=== PATIENT | female | born 1985 ===

== ENCOUNTER 2017-08-29 13:25 | Emergency (ER) | payer OTHER ==
[2017-08-29 13:53] VITALS: BMI 24.7
[2017-08-29 13:58] VITALS: RESP 18
--- NOTE | 2017-08-29 16:31 | C.PDOC ---
History Of Present Illness 31 yo female c/o lower back pain for two days. Pt notes she reached for something and felt a "shooting" pain in her back. Notes that pain improved but today she bent down and the pain returned. DEnies direct trauma. No change in sensation, dysuria, urinary frequency, vaginal bleeding, or h/o back pain. Pt has not taken anything for pain. Time Seen by Provider: 08/29/17 15:43 Chief Complaint (Nursing): Back Pain History Per: Patient History/Exam Limitations: no limitations Onset/Duration Of Symptoms: Days Current Symptoms Are (Timing): Still Present Quality Of Discomfort: "Pain" Past Medical History Vital Signs: Last Vital Signs Temp 98.3 F 08/29/17 16:37 Pulse 73 08/29/17 16:37 Resp 18 08/29/17 16:37 BP 99/66 L 08/29/17 16:37 Pulse Ox 99 08/29/17 16:37 - Medical History PMH: Anemia, Asthma Denies: Chronic Kidney Disease Family History: States: Unknown Family Hx - Social History Hx Alcohol Use: No Hx Substance Use: No - Immunization History Hx Tetanus Toxoid Vaccination: No Hx Influenza Vaccination: No Hx Pneumococcal Vaccination: No Review Of Systems Constitutional: Negative for: Fever, Chills Gastrointestinal: Negative for: Nausea, Vomiting, Abdominal Pain Genitourinary: Negative for: Dysuria, Frequency Musculoskeletal: Positive for: Back Pain Neurological: Negative for: Weakness, Numbness Physical Exam - Physical Exam Appears: Well, Non-toxic, No Acute Distress Skin: Normal Color, Warm, Dry Head: Atraumatic, Normacephalic Eye(s): bilateral: Normal Inspection, PERRL, EOMI Ear(s): Bilateral: Normal Nose: Normal Oral Mucosa: Moist Throat: Normal, No Erythema, No Exudate Neck: Normal, Normal ROM, Supple Lymphatic: Normal Exam Chest: Symmetrical Cardiovascular: Rhythm Regular Respiratory: Normal Breath Sounds Gastrointestinal/Abdominal: Normal Exam, Soft, No Tenderness Back: No CVA Tenderness, No Vertebral Tenderness, Paraspinal Tenderness ((+) paralumbar tenderness) Extremity: Normal ROM Neurological/Psych: Oriented x3, Normal Speech, Normal Motor, Normal Sensation ED Course And Treatment O2 Sat by Pulse Oximetry: 100 Progress Note: PT offered XR, refused. Toradol ordered. On reassessment, patient resting comfortably, no longer having back pain, no fever, no bony tenderness, no numbness, no weakness, no abdominal pain. Patient is ambulatory in the emergency department with no discomfort. Patient was instructed to follow up with physician/clinic in 1-2 days for further evaluation or return to ED if symptoms persist or worsen. Disposition - Disposition Disposition: HOME/ ROUTINE Disposition Time: 16:29 Condition: STABLE Additional Instructions: Follow up with primary medical doctor in 1-3 days without fail for further evaluation. Take medications as prescribed. Return to the emergency department at any time if symptoms persist or worsen. Prescriptions: Cyclobenzaprine [Cyclobenzaprine HCl] 10 mg PO TID #20 tab Naproxen [Naprosyn] 1 tab PO BID PRN #20 tab PRN Reason: Pain Instructions: Muscle Strain (ED) Forms: [facility] (Togolese) - Clinical Impression Clinical Impression: Lumbar sprain
[2017-08-29 16:38] VITALS: BP 99/66; PULSE 73; TEMP 98.3
[2017-08-29 17:12] VITALS: O2SAT 100
== END 2017-08-29 16:41 | disposition home or self-care (01) ==
LOC: C.ER 13:25
DX: S33.5XXA Sprain of ligaments of lumbar spine, initial encounter (principal); X50.1XXA Overexertion from prolonged static or awkward postures, initial encounter
CPT/HCPCS: 96372; 99283; J1885